=== PATIENT | female | born 1975 | race Two or more races ===

== ENCOUNTER → 2024-11-28 | Outpatient (CLI) | payer MEDICAID, SELFPAY ==
--- NOTE | 2024-11-28 15:26 | XR_ITS ---
Examination: Hand, left 3 views Technique: Hand AP, oblique, lateral 3 views Date and time of exam: February 25, 2025 1543 hours INDICATIONS: Palpable mass on the back of the hand beginning one year ago. FINDINGS: Mild juxta-articular bone demineralization. No fracture or bony exostosis. No cortical bone destruction No opaque foreign body Soft tissue prominence is present dorsum of the hand IMPRESSION: Consider MRI hand follow-up to best assess the soft tissue mass dorsum of the hand
--- NOTE | 2024-11-28 15:26 | XR_ITS ---
Examination: Wrist, left 3 views Technique: Wrist AP, oblique, lateral 3 views Date and time of exam: November 28, 2024 1543 hours INDICATIONS: Palpable mass back of the hand is beginning one year ago. FINDINGS: Mild osteopenia No fracture or dislocation 5 x 20 mm soft tissue mass dorsum of the hand noticed on the lateral view IMPRESSION: 5 x 20 mm soft tissue mass in dorsum of the hand noticed on the lateral view Consider MRI hand without contrast follow-up
== END | disposition home or self-care (01) ==
LOC: CDIM 15:13
PROVIDERS: PCP Obstetrics & Gynecology; Referring Provider Nurse Practitioner Gerontology; Visit Provider Nurse Practitioner Gerontology
DX: R22.32 Localized swelling, mass and lump, left upper limb (principal)
CPT/HCPCS: 73110; 73130

== ENCOUNTER 2025-03-04 19:47 | Emergency (ER) | payer MEDICAID, SELFPAY ==
[2025-03-04 19:48] VITALS: BP 158/92; PULSE 94; RESP 18; TEMP 36.7; O2SAT 96; BMI 33.8
--- NOTE | 2025-03-04 20:40 | PD.EDRME ---
Rapid Medical Screening Exam RME Arrival date/time: 03/04/25 19:47 49 year old female present to ED for c/o dysuria, urgency and pelvic pain I have greeted and performed a focused initial assessment of this patient. A comprehensive ED assessment and evaluation of the patient, analysis of all test results, and completion of the medical decision making process will be conducted by additional ED providers. Chief Complaint: Urogenital-Female Time Seen by Provider: 03/04/25 20:03 Vital signs: Vital Signs Temperature 98.0 F 03/04/25 19:48 Pulse Rate 94 03/04/25 19:48 Respiratory Rate 18 03/04/25 19:48 Blood Pressure 158/92 H 03/04/25 19:48 Pulse Oximetry (%) 96 03/04/25 19:48 Oxygen Delivery Method Room Air 03/04/25 19:48
--- NOTE | 2025-03-04 20:41 | XR_ITS ---
Examination: Transvaginal ultrasound of the pelvis, complete Technique: Transvaginal sonographic images pelvis performed using lara scale imaging Exam date and time: March 04, 2025 10:50 PM INDICATIONS: Pelvic pain beginning one week ago FINDINGS: Uterus 9.1 cm endometrial stripe 0.50 cm Small areas of uterine fibroid degeneration 17 x 20 mm, 16 x 19 mm Right ovary 2.0 cm arterial flow Left ovary is obscured by bowel gas IMPRESSION: Small areas of uterine fibroid degeneration.
[2025-03-04 21:31] LABS: Collection Type, Urine Voided
[2025-03-04 21:42] LABS: Bilirubin,Urine Negative (Negative); Blood,Urine Trace (Negative); Clarity,Urine Clear (Clear/Hazy); Color,Urine Lt-Yellow (Lt Yel-Yel); Glucose, Urine Negative (Negative); Hyaline Casts,Urine 1 /hpf (0-1); Ketones,Urine Trace (Negative); Leukocyte Esterase,Urine Positive (Negative); Nitrite,Urine Negative (Negative); PH,Urine 5.5 (5.0-7.0); Protein,Urine Trace (Neg - Trace); RBC,Urine 9 /hpf (0-3); Specific Gravity,Urine 1.032 (1.001-1.035); Squamous Epithelial Cell,Urine 1 /hpf (0-5); Urobilinogen,Urine Negative mg/dL (0.0-1.0); WBC,Urine 29 /hpf (0-5)
[2025-03-04 21:43] LABS: HCG Qualitative,Urine Negative
[2025-03-04 22:21] LABS: Syphilis Nonreactive (Nonreactive)
[2025-03-04 22:38] LABS: HIV (1&2) Antibody Rapid Non-Reactive
--- NOTE | 2025-03-05 00:13 | EDNOTE_ITS ---
ED Female Urogenital RME/HPI General Chief complaint: Urogenital-Female Stated complaint: UTI SYMPTOMS Time Seen by Provider: 03/04/25 20:03 Arrival date/time: 03/04/25 19:47 RME / HPI RME / HPI Narrative: 03/04/25 19:47 49 year old female present to ED for c/o dysuria, urgency and pelvic pain I have greeted and performed a focused initial assessment of this patient. A comprehensive ED assessment and evaluation of the patient, analysis of all test results, and completion of the medical decision making process will be conducted by additional ED providers. This section includes all my notes and documentations, including HPI, PE, and ED course. Gabino Mooney MD HPI: 49 y/o female presents to ED c/o dysuria, mild back pain, and pelvic pain x approximately 12 hours. Patient has taken Ibuprofen 800 mg 3 times today to manage pain. No fever reported. No other complaints. ROS: All negative except as documented in HPI. Physical Exam: General: Alert and oriented. No acute distress when remaining still. Eyes: Conjunctivae and lids clear. ENT: No nasal congestion. Neck: Supple. Heart: RRR. Lungs: No respiratory distress. Good air movement. No rhonchi, wheezing, rales. Abdomen: Soft and nontender. Normal bowel sounds. No distension. No rebound or guarding. Back: No CVA tenderness. Skin: Warm and dry. Neuro: Alert and oriented X 3. I reviewed all diagnostic test results. My review of the pelvic US report is NAD. UA remarkable for 9 RBC, 29 WBC, and 1 squamous epithelial cells. Syphilis negative. HIV negative. Chlamydia/gonorrhea/trichomonas pending. At this point, diagnoses include UTI. Treatment here included Macrobid, Tylenol with Codeine, Pyridium. Significant improvement noted. Recommend outpatient treatment. Based on my best medical judgment, made decision no further evaluation or treatment indicated at this time. Patient understands and agrees to the discharge instructions customized and printed, see below. Discharge instructions from Dr. Mooney: 1. After evaluation, you have UTI (see attached handout).? 2. Take Macrobid to kill the germs causing the infection.? Increase oral fluid to flush it out.? Maintain clear urine.? If dark or yellow, increase oral fluid. 3. Pyridium and Tylenol with codeine for pain. 4. See a private doctor on 03/07/2025 for recheck and further care. Ask to review all test results and official radiology reports, to make sure you receive all necessary follow-ups and monitoring. 5. Seek immediate medical care with worsening, fever, or with any concerns. Gabino Mooney MD Related Data Home Medications ?Medication ?Instructions ?Recorded ?Confirmed lisinopril 20 mg tablet 20 mg PO QDAY 09/13/1908/05 famotidine 20 mg tablet 20 mg PO BID 08/01/21 Previous Rx's ?Medication ?Instructions ?Recorded hydrocodone 5 mg-acetaminophen 325 1 tab PO Q6H PRN pa in #12 tabs 08/01/21 mg tablet acetaminophen 300 mg-codeine 30 mg 2 tab PO Q8H PRN pa in #10 tabs 03/05/25 tablet nitrofurantoin 100 mg PO BID #14 caps 03/05 monohydrate/macrocrystals 100 mg capsule (Macrobid) phenazopyridine 200 mg tablet 200 mg PO TID PRN pain # 6 tabs 03/05/25 (Pyridium) Allergies Allergy/AdvReac Type Severity Reaction Status Date / Time No Known Allergies Allergy Verified 03/04/25 19:49 Review of Systems Review of Systems Systems Reviewed: All systems reviewed, normal except as documented Past Medical History Past Medical History CARDIAC: Positive Cardiac Disorders and Hypertension GASTROINTESTINAL: Positive Gastrointestinal Disorders ENDOCRINE: Positive Endocrine Disorders Family History FAMILY HISTORY: Positive Family Cardiac Disorders and Family Cancer Social History SMOKING STATUS: Never smoker SUBSTANCE USE: does not use ED Exam Narrative Physical exam: Refer to HPI above Course Quality Measures none Orders Category Date Time Status US transvaginal Stat Exams 03/04/25 20:41 Completed Chlamydia/GC/TV - PCR Stat Lab 03/04/25 20:48 Received HCG Qualitative,Urine Stat Lab 03/04/25 20:48 Completed HIV (1&2) Antibody Rapid Stat Lab 03/04/25 20:58 Completed Syphilis Stat Lab 03/04/25 20:58 Completed UA [Urinalysis] Stat Lab 03/04/25 20:48 Completed ACETAMINOPHEN w/COD 300-30 [Tylenol w/Cod #3] Med 03/05/25 00:16 Discontinued 2 tab PO X1 ONE Nitrofurantoin Macro [Macrobid] Med 03/05/25 00:16 Discontinued 100 mg PO X1 ONE Phenazopyridine HCl [Pyridium] Med 03/05/25 00:16 Discontinued 200 mg PO X1 ONE Vital Signs Vital signs: Vital Signs Temperature 98.0 F 03/04/25 19:48 Pulse Rate 94 03/04/25 19:48 Respiratory Rate 18 03/04/25 19:48 Blood Pressure 158/92 H 03/04/25 19:48 Pulse Oximetry (%) 96 03/04/25 19:48 Oxygen Delivery Method Room Air 03/04/25 19:48 Urogenital - Female MDM Narrative MDM Narrative:: Scribe Attestation: Martha Vazquez, am scribing for and in the presence of Dr. Mooney. Provider Notation: Although this document has been carefully reviewed, there may still be some phonetic and other typographical errors.? These errors are purely grammatical due to imperfections in the software program and should not be construed in any way to? compromise the substance of the patient's medical care during this visit. 49 y/o female presents to ED c/o dysuria, mild back pain, and pelvic pain x approximately 12 hours. Patient data External records reviewed:: [facility] previous records (Prior ED records from 09/13/23 reviewed. Patient was seen for Bile acid malabsorption syndrome.) Clinical information provided by:: patient Social determinants that could affect healthcare access:: none Patient has the following chronic illnesses:: None reported How is presenting disease/condition affected by chronic disease/condition?: no chronic disease Evaluation data The following diagnostics were reviewed and interpreted by me:: lab results and radiology exam(s) Lab and/or radiology exams considered but not ordered:: None Interpretation Summary: I reviewed all diagnostic test results. My review of the pelvic US report is NAD. UA remarkable for 9 RBC, 29 WBC, and 1 squamous epithelial cells. Syphilis negative. HIV negative. Chlamydia/gonorrhea/trichomonas pending. Medications / Prescriptions Medications or Prescriptions considered but not ordered:: None Medication administrations:: Medication Administration History Discontinued Medications Acetaminophen/Codeine Phosphate (Acetaminophen W/Cod 300-30 Tablet) 2 tab PO X1 ONE Stop: 03/05/25 00:17 Nitrofurantoin Macrocrystals (Nitrofurantoin Macro 100 Mg Capsule) 100 mg PO X1 ONE Stop: 03/05/25 00:17 Phenazopyridine HCl (Phenazopyridine Hcl 100 Mg Tablet) 200 mg PO X1 ONE Stop: 03/05/25 00:17 Tylenol with Codeine, Macrobid, Pyridium. Consultations Consultation(s) initiated? (list below): No Diagnosis Urogenital Female Differential Diagnosis: urinary tract infection, bacterial vaginosis, trichomoniasis, cervicitis, ovarian cyst, vaginitis, ruptured ovarian cyst and cystitis Most likely diagnosis given after review of the tests above:: UTI Admission Indicated Admission indicated?: not indicated Explain why admission is indicated or not indicated:: With significant improvement, there was no indication for admission. Admission Request Was there a request for admission?: No Disposition Plan Disposition Plan: Discharge Discharge Attestation Discharge Attestation: The patient and all family members were given an opportunity to ask questions and understood the discharge instructions. Discharge instructions specifically effects, indications for sooner follow up or return to the emergency department, and the expected course of current diagnosis. Patient condition: Stable Discharge Plan Plan Patient Disposition: HOME (Self Care) Prescriptions/Referrals Prescriptions/Med Rec: New phenazopyridine [Pyridium] 200 mg tablet 200 mg PO TID PRN (Reason: pain) Qty: 6 0RF acetaminophen-codeine 300-30 mg tablet 2 tab PO Q8H MDD 6 PRN (Reason: pain) Qty: 10 0RF nitrofurantoin monohyd/m-cryst [Macrobid] 100 mg capsule 100 mg PO BID Qty: 14 0RF Rx Instructions: must administer with a meal/food No Action famotidine 20 mg Tablet 20 mg PO BID hydrocodone-acetaminophen 5-325 mg tablet 1 tab PO Q6H MDD 4 PRN (Reason: pain) Qty: 12 0RF lisinopril 20 mg Tablet 20 mg PO QDAY Referrals: Luís Shen MD [Primary Care Provider] - In 1 week Problem List Clinical Impression: Urinary tract infection Patient/Caregiver Discharge Instructions Discharge Activity: activity as tolerated Education Materials: ED CYSTITIS Female Adult Additional Instructions: Discharge instructions from Dr. Mooney: 1. After evaluation, you have UTI (see attached handout).? 2. Take Macrobid to kill the germs causing the infection.? Increase oral fluid to flush it out.? Maintain clear urine.? If dark or yellow, increase oral fluid. 3. Pyridium and Tylenol with codeine for pain. 4. See a private doctor on 03/07/2025 for recheck and further care. Ask to review all test results and official radiology reports, to make sure you receive all necessary follow-ups and monitoring. 5. Seek immediate medical care with worsening, fever, or with any concerns. Print Language: [place] Stand Alone Forms: [employer] Info., Patient Portal Info Letter
[2025-03-05] MEDS: ACETAMINOPHEN w/COD 300-30 TABLET 2 TAB PO (00:37)
[2025-03-05] MEDS: PHENAZOPYRIDINE HCL 100 MG TABLET 200 MG PO (00:38)
[2025-03-05] MEDS: NITROFURANTOIN MACRO 100 MG CAPSULE PO (00:38)
[2025-03-05 00:42] VITALS: BP 127/62; PULSE 78; RESP 19; TEMP 36.7; O2SAT 99
[2025-03-05 12:23] LABS: Chlamydia trachomatis PCR Positive (Not Detect); Neisseria Gonorrhoeae DNA PCR Negative (Not Detect); Trichomonas Negative (Negative)
== END 2025-03-05 00:43 | disposition home or self-care (01) ==
PROVIDERS: Physician Assistant; Emergency Provider Emergency Medicine; PCP Obstetrics & Gynecology
DX: N39.0 Urinary tract infection, site not specified (principal); R10.2 Pelvic and perineal pain
CPT/HCPCS: 36415; 76830; 81001; 81025; 86703; 86780; 87491; 87591; 87661; 99284; A9270

== ENCOUNTER → 2025-08-16 | Outpatient (CLI) | payer MEDICAID, SELFPAY ==
--- NOTE | 2025-08-16 11:15 | XR_ITS ---
Examination: Screening digital mammography, bilateral Computer aided detection 3-D breast Tomosynthesis, bilateral Date and time of exam: August 16, 2025, 1054 hours Compared to mammograms dating to August 15, 2011 Indication: Screening Technique: Nonmagnified MLO, CC views of the breasts to been obtained, reconstructed from 3-D Tomosynthesis images. R2 computer aided detection program utilized for evaluation of suspicious masses and/or abnormal calcifications. 3-D Tomosynthesis images obtained. Findings: The breasts are heterogeneously dense, which may obscure small masses 8 mm focal asymmetry outer right breast posterior depth, 8.7 cm from the nipple, likely upper right breast on the MLO view 8 mm nodule circumscribed upper outer left breast Impression: BI-RADS Category 0: Incomplete: Need additional imaging evaluation Recommend follow-up spot tomographic views 8 mm focal asymmetry upper outer right breast and 8 mm nodule upper outer left breast as well as bilateral breast sonography to complete
== END | disposition home or self-care (01) ==
PROVIDERS: PCP Obstetrics & Gynecology; Referring Provider Obstetrics & Gynecology; Visit Provider Obstetrics & Gynecology
DX: Z12.31 Encounter for screening mammogram for malignant neoplasm of breast (principal); R92.8 Other abnormal and inconclusive findings on diagnostic imaging of breast; N64.89 Other specified disorders of breast; N63.21 Unspecified lump in the left breast, upper outer quadrant
CPT/HCPCS: 77063; 77067